=== PATIENT | female | born 1990 | race Two or more races ===

== ENCOUNTER 2020-05-08 13:10 | Outpatient (REF) | payer OTHER, SELFPAY | END 2020-05-08 13:11 | disposition home or self-care (01) | LOC: HO.LAB 13:10 | PROVIDERS: PCP Internal Medicine; Visit Provider Internal Medicine | DX: Z20.828 Contact with and (suspected) exposure to other viral communicable diseases (principal) | CPT/HCPCS: C9803; U0003 ==

== ENCOUNTER 2022-10-05 10:08 | Emergency (ER) | payer OTHER, SELFPAY ==
--- NOTE | ~2022-10-05 | XR_ITS ---
EXAMINATION: XR CHEST CLINICAL INFORMATION: Cough. COMPARISON: None available. TECHNIQUE: Frontal view of the chest was obtained. FINDINGS: Mild asymmetric markings are seen at the right lung base. The left lung is clear. The heart and mediastinal structures are unremarkable. XR/XR chest 1V IMPRESSION: Small right basilar infiltrate and/or atelectasis.
[2022-10-05 10:55] VITALS: BP 108/72; RESP 18; TEMP 36.6; O2SAT 98; BMI 29.3
--- NOTE | 2022-10-05 11:01 | ED.GENADULT ---
HPI - General Adult General Chief complaint: General Medical <ELIZABETH Gaines Last Filed: 10/05/22 11:02> Stated complaint: cough, throat pain, chest discomfort <ELIZABETH Gaines Last Filed: 10/05/22 11:02> Time Seen by Provider: 10/05/22 12:22 <ELIZABETH Gaines Last Filed: 10/05/22 11:02> Source: patient, RN notes reviewed and old records reviewed <ELIZABETH Iniguez Last Filed: 10/05/22 13:51> Mode of arrival: ambulatory <ELIZABETH Iniguez Last Filed: 10/05/22 13:51> History of Present Illness HPI narrative: 32-year-old female with no significant past medical history presenting to the ED complaining of dry cough, generalized fatigue/malaise, sore throat, SOB, chills x 1 week. Reports tested negative on outpatient COVID-19 testing. Denies chest pain, recent travel, sick contacts, pedal edema, calf pain, ear pain <ELIZABETH Iniguez Last Filed: 10/05/22 13:51> Onset (ago): day(s) <ELIZABETH Iniguez Last Filed: 10/05/22 13:51> Related Data Home medications: Previous Rx's Medication Instructions Recorded amoxicillin 500 mg capsule 1,000 mg PO TID 7 days #42 caps 10/05/22 azithromycin 250 mg tablet See Rx Instructions PO .COMPLEX #6 10/05/22 tabs benzonatate 100 mg capsule 100 mg PO TID PRN cough #14 caps 10/05/22 <ELIZABETH Gaines Last Filed: 10/05/22 11:02> Allergies/adverse reactions: Allergies Allergy/AdvReac Type Severity Reaction Status Date / Time No Known Allergies Allergy Unverified 02/20/20 17:05 <ELIZABETH Gaines Last Filed: 10/05/22 11:02> Review of Systems Review of Systems: Constitutional: No Fever, + Chills ENT/Mouth: No Ear Pain, + Nasal Congestion, No Sinus Pain, No Hoarseness, + sore throat, + Rhinorrhea, No Swallowing Difficulty Cardiovascular: No Chest Pain, + SOB Respiratory: + Cough, No Sputum, No Wheezing Gastrointestinal: No Nausea, No Vomiting, No Diarrhea, No Constipation, No Abdominal pain Genitourinary: No Dysuria, No Urinary Frequency, No Hematuria Musculoskeletal: No joint pain, No Myalgias, No Joint Swelling Skin: No Skin Lesions, No rash Neuro: No Weakness, No Numbness, No Paresthesias <ELIZABETH Iniguez - Last Filed: 10/05/22 13:51> Yes all other systems are reviewed and are negative <ELIZABETH Iniguez - Last Filed: 10/05/22 13:51> Constitutional: Constitutional: Reports as per HPI <ELIZABETH Iniguez Last Filed: 10/05/22 13:51> [facility] Past Medical History Attestation statement: The following information was validated with the patient. <ELIZABETH Iniguez Last Filed: 10/05/22 13:51> Source: old records reviewed <ELIZABETH Iniguez Last Filed: 10/05/22 13:51> Social History Social History: Social History Advance Directives: No Advance Directives Information Provided: No <ELIZABETH Gaines Last Filed: 10/05/22 11:02> Physical Exam ED Vital Signs: Vital Signs - 24 hr 10/05/22 10:55 10/05/22 13:00 10/05/22 12:55 Temperature 98 F Pulse Rate 77 76 Respiratory Rate 18 16 19 Blood Pressure 108/72 Pulse Oximetry 98 98 Oxygen Delivery Method Room Air Room Air BMI result Body Mass Index 29.3 <ELIZABETH Gaines Last Filed: 10/05/22 11:02> Vital Signs - 24 hr 10/05/22 10:55 10/05/22 13:00 10/05/22 12:55 Temperature 98 F Pulse Rate 77 76 Respiratory Rate 18 16 19 Blood Pressure 108/72 Pulse Oximetry 98 98 Oxygen Delivery Method Room Air Room Air BMI result Body Mass Index 29.3 <ELIZABETH Iniguez Last Filed: 10/05/22 13:51> Const General: cooperative, healthy appearing, no acute distress, alert and awake <ELIZABETH Iniguez - Last Filed: 10/05/22 13:51> Orientation/consciousness: patient oriented x3 <ELIZABETH Iniguez - Last Filed: 10/05/22 13:51> Limitations: no limitations <ELIZABETH Iniguez - Last Filed: 10/05/22 13:51> HENMT Head: Yes normal to inspection and Yes atraumatic <ELIZABTEH Iniguez - Last Filed: 10/05/22 13:51> Ears: hearing grossly normal bilaterally, external ears normal, TM's normal bilaterally and mastoids normal <ELIZABETH Iniguez - Last Filed: 10/05/22 13:51> General nose exam: Normal external nose present and Nasal discharge present <ELIZABETH Iniguez - Last Filed: 10/05/22 13:51> Face and sinus: Yes normal facial exam <ELIZABETH Iniguez Last Filed: 10/05/22 13:51> Throat: Yes posterior oropharynx normal, Yes uvula midline, No peritonsillar mass and No uvular edema <ELIZABETH Iniguez - Last Filed: 10/05/22 13:51> Eyes General: appearance normal, both eyes and all related structures <ELIZABETH Iniguez - Last Filed: 10/05/22 13:51> EOM: EOMs intact bilaterally <ELIZABETH Iniguez - Last Filed: 10/05/22 13:51> Neck Neck: Yes normal visual inspection and Yes no meningeal signs <ELIZABETH Iniguez - Last Filed: 10/05/22 13:51> Resp Effort & Inspection: normal respiratory effort and no respiratory distress <ELIZABETH Iniguez - Last Filed: 10/05/22 13:51> Auscultation: crackles on the right at the base <ELIZABETH Iniguez - Last Filed: 10/05/22 13:51> Cardio Rate: regular rate <ELIZABETH Iniguez - Last Filed: 10/05/22 13:51> Heart sounds: S1 normal heart sound present and S2 normal heart sound present <ELIZABETH Iniguez - Last Filed: 10/05/22 13:51> GI Inspection: Yes normal to inspection <ELIZABETH Iniguez Last Filed: 10/05/22 13:51> Skin Rashes: no rashes <ELIZABETH Iniguez Last Filed: 10/05/22 13:51> Wounds: no wounds <ELIZABETH Iniguez - Last Filed: 10/05/22 13:51> Neuro General: patient oriented x3, tone normal and no meningeal signs <ELIZABETH Iniguez Last Filed: 10/05/22 13:51> Gait exam (Neuro): Normal gait present <ELIZABETH Iniguez Last Filed: 10/05/22 13:51> Extrem General: Yes normal to inspection, Yes no pedal edema and Yes no calf tenderness <ELIZABETH Iniguez Last Filed: 10/05/22 13:51> Course Course Course Narrative: This is an RME: Additional HPI, ROS, PE not included below will be deferred to primary provider. URI sx X 1 week worsening. Denies sick contacts Viral test ordered Stable to go back to waiting room <ELIZABETH Gaines - Last Filed: 10/05/22 11:02> This is an RME: Additional HPI, ROS, PE not included below will be deferred to primary provider. URI sx X 1 week worsening. Denies sick contacts Viral test ordered Stable to go back to waiting room -1226--COVID & influenza negative 1251--XR chest 1V IMPRESSION: Small right basilar infiltrate and/or atelectasis. > will treat with p.o. Amoxicillin and Azithro -rapid strep negative Results discussed with patient including worrisome signs and symptoms and strict return precautions, and when to return to the emergency department. They verbalized understanding and feel safe for discharge at this time. <ELIZABETH Iniguez Last Filed: 10/05/22 13:51> Medications Administered Discontinued Medications Generic Name Dose Route Start Last Admin Trade Name Freq PRN Reason Stop Dose Admin Albuterol Sulfate 4 puff 10/05/22 12:36 10/05/22 12:54 Albuterol Sulfate 90 Mcg 8 Gm Inhaler INHALE 10/05/22 12:37 4 puff ONCE ONE Administration <ELIZABETH Gaines Last Filed: 10/05/22 11:02> Medications Administered Discontinued Medications Generic Name Dose Route Start Last Admin Trade Name Fadumo PRN Reason Stop Dose Admin Albuterol Sulfate 4 puff 10/05/22 12:36 10/05/22 12:54 Albuterol Sulfate 90 Mcg 8 Gm Inhaler INHALE 10/05/22 12:37 4 puff ONCE ONE Administration <ELIZABETH Iniguez - Last Filed: 10/05/22 13:51> Medical Decision Making Medical Decision Making MDM Narrative: 32-year-old female with no significant past medical history presenting to the ED complaining of dry cough, generalized fatigue/malaise, sore throat, SOB, chills x 1 week. On exam vital signs stable, NAD, nontoxic appearing, talking complete sentences, no respiratory distress, faint crackles noted to right lung base, good air movement, no pedal edema/calf tenderness. Concern for viral illness vs pneumonia vs bronchitis. Lower suspicion for ACS/PE. Rule out strep pharyngitis. Plan: COVID/flu, rapid strep, CXR, albuterol inhaler, re-evaluated Please refer to course for remaining clinical decision making, interpretation of labs/imaging results, and discussions with consultants and/or family members. <ELIZABETH Iniguez - Last Filed: 10/05/22 13:51> Differential Diagnosis Differential Diagnoses: The differential diagnosis associated with the presentation includes <ELIZABETH Iniguez - Last Filed: 10/05/22 13:51> As above <ELIZABETH Iniguez - Last Filed: 10/05/22 13:51> Lab Data MDM Lab Attestation statement: I reviewed the patient's lab results. <ELIZABETH Iniguez - Last Filed: 10/05/22 13:51> Labs: Lab Results 10/05/22 10/05/22 10/05/22 Range/Units 11:13 11:13 13:06 COVID-19 (BOOGIE) Negative (Negative) COVID-19 Clin Com See Note Influenza Type A (FINA) Negative (Negative) Influenza Type B (FINA) Negative (Negative) Influenza A & B Note See Note S. pyogenes GrpA FINA Negative (Negative) <ELIZABETH Gaines - Last Filed: 10/05/22 11:02> Lab Results 10/05/22 10/05/22 10/05/22 Range/Units 11:13 11:13 13:06 COVID-19 (BOOGIE) Negative (Negative) COVID-19 Clin Com See Note Influenza Type A (FINA) Negative (Negative) Influenza Type B (FINA) Negative (Negative) Influenza A & B Note See Note S. pyogenes GrpA FINA Negative (Negative) <ELIZABETH Iniguez - Last Filed: 10/05/22 13:51> Radiology Impression Discussion of test interpretation with radiology: I have reviewed the radiologist's reading. <ELIZABETH Iniguez - Last Filed: 10/05/22 13:51> External Record Review External record reviewed: Inpatient record, Office record, Outpatient record, Prior outpatient labs, Prior outpatient radiology, Primary care record and Outside ED record <ELIZABETH Iniguez - Last Filed: 10/05/22 13:51> Tests considered The following testing was considered but not selected: As above <ELIZABETH Iniguez - Last Filed: 10/05/22 13:51> Discharge Plan Discharge Clinical Impression: Pneumonia <ELIZABETH Gaines - Last Filed: 10/05/22 11:02> Patient Disposition: Home, Self-Care <ELIZABETH Gaines - Last Filed: 10/05/22 11:02> Instructions: Community Acquired Pneumonia (DC) <ELIZABETH Gaines - Last Filed: 10/05/22 11:02> Additional Instructions: Your x-ray shows a small developing pneumonia. Amoxicillin and Zithromax and or antibiotics please take as prescribed David Dawson for cough take as needed Use albuterol inhaler for shortness of breath/wheezing rest Stay hydrated Follow-up with her doctor If symptoms persist or worsen return to the ED <ELIZABETH Gaines - Last Filed: 10/05/22 11:02> Prescriptions: New amoxicillin 500 mg capsule 1,000 mg PO TID 7 Days Qty: 42 0RF azithromycin 250 mg tablet See Rx Instructions .ROUTE .COMPLEX Qty: 6 0RF Rx Instructions: take 500 mg today (day 1), then 250 mg for 4 days (days 2-5) benzonatate 100 mg capsule 100 mg PO TID PRN (Reason: cough) Qty: 14 0RF <ELIZABETH Gaines - Last Filed: 10/05/22 11:02> Referrals: Brenda Banks MD [Primary Care Provider] - 3 days <ELIZABETH Gaines - Last Filed: 10/05/22 11:02> Stand Alone Forms: Work/School Release <ELIZABETH Gaines - Last Filed: 10/05/22 11:02>
[2022-10-05 11:49] LABS: IDNOW Serial# BCCEAD1C; Influenza A Negative (Negative); Influenza B2 Negative (Negative)
[2022-10-05 11:50] LABS: COVID-19 Test Negative (Negative); IDNOW Serial# 08D9AD1C
[2022-10-05] MEDS: Albuterol Sulfate 90 MCG 8 GM INHALER 4 PUFF INHALE (12:54)
[2022-10-05 12:55] VITALS: PULSE 76; RESP 19; O2SAT 98
[2022-10-05 13:00] VITALS: PULSE 77; RESP 16; O2SAT 97
[2022-10-05 13:23] LABS: IDNOW Serial# 6674DD1D; Strep A Nucleic Acid Negative (Negative)
== END 2022-10-05 14:38 | disposition home or self-care (01) ==
PROVIDERS: Physician Assistant; Emergency Provider Student in an Organized Health Care Education/Training Program; PCP Internal Medicine
DX: J18.9 Pneumonia, unspecified organism (principal); Z20.822 Contact with and (suspected) exposure to COVID-19; J02.9 Acute pharyngitis, unspecified
CPT/HCPCS: 71045; 87502; 87635; 87651; 94640; 94664; 99284

== ENCOUNTER 2023-08-16 09:49 | Emergency (ER) | payer OTHER, SELFPAY ==
[2023-08-16 10:01] VITALS: BP 117/81; PULSE 82; RESP 18; TEMP 36.7; O2SAT 100; BMI 29.9
--- NOTE | 2023-08-16 10:40 | ED_ITS ---
HPI - General Adult General Chief complaint: Anxiety Stated complaint: Anxiety Attack Time Seen by Provider: 08/16/23 10:39 Source: patient Mode of arrival: ambulatory Limitations: no limitations History of Present Illness HPI narrative: Patient is a 33 year old, assigned female at , with a history of anxiety induced by new social situations presents to the ED after having a panic attack at work. Patient reports she was at work, when she was floated to a new unit, which caused her to have a panic attack. Patient reports she was sent home from work after being unable to control her anxiety. At the time she was seen the patient was not experiencing any symptoms related to her anxiety or her recent panic attack. Patient advised that she was waiting to establish care with a primary care provider but her appointment is not scheduled until October 02, 2023. Denies fevers/chills, lightheadedness, dizziness, SOB, chest pain, and SI/HI at this time. MD complaint: Panic attack Onset (ago): hour(s) (2) Radiation: non-radiation Severity: mild Severity scale (1-10): 2 Pain Consistency: now resolved Relieving factors: other (avoidance of new social situations) Exacerbating factors: other (New social situations) Associated symptoms: denies other symptoms Treatments prior to arrival: none Related Data Previous Rx's Medication Instructions Recorded amoxicillin 500 mg capsule 1,000 mg (2 x 500 mg) PO TID 7 10/05/22 days #42 caps azithromycin 250 mg tablet See Rx Instructions PO .COMPLEX #6 10/05/22 tabs benzonatate 100 mg capsule 100 mg PO TID PRN cough #14 caps 10/05/22 Allergies Allergy/AdvReac Type Severity Reaction Status Date / Time No Known Allergies Allergy Verified 08/16/23 10:05 Review of Systems Constitutional: Constitutional: Reports no additional constitutional complaints, Denies chills, Denies fever(s) and Denies night sweats Eyes: Eyes: Reports no additional eye complaints, Denies blurry vision, Denies change in vision, Denies diplopia, Denies eye discharge, Denies loss of vision and Denies eye pain ENT: Denies dizziness Cardiovascular: Cardiovascular: Reports no additional cardiovascular complaints, Denies chest pain, Denies lightheadedness, Denies Loss of Consciousness and Denies dyspnea Respiratory: Respiratory: Reports no additional respiratory complaints and Denies dyspnea Gastrointestinal: Gastrointestinal: Reports no additional gastrointestinal complaints, Denies abdominal pain, Denies melena, Denies hematochezia, Denies change in bowel habits and Denies change in stool character Genitourinary: Genitourinary: Denies hematuria, Denies urinary frequency, Denies dysuria, Denies urinary incontinence, Denies urinary hesitancy and Denies urinary urgency Musculoskeletal: Musculoskeletal: Reports no additional musculoskeletal complaints, Denies numbness and Denies tingling Neurologic: Denies dizziness, Denies loss of vision, Denies numbness and Denies tingling Psychiatric: Psychiatric: Reports no additional psychiatric complaints Endocrine: Endocrine: Reports no additional endocrine complaints Hematologic/Lymphatic: Hematologic/Lymphatic: Reports no additional hematologic/lymphatic complaints Allergic/Immunologic: Allergic/Immunologic: Reports no additional allergic/immunologic complaints [facility] Past Medical History Attestation statement: The following information was validated with the patient. Source: old records reviewed and nursing notes reviewed Social History Social History Advance Directives: No Physical Exam ED Vital Signs: Vital Signs - 24 hr 08/16/23 10:01 Temperature 98.1 F Pulse Rate 82 Respiratory Rate 18 Blood Pressure 117/81 Pulse Oximetry 100 Oxygen Delivery Method Room Air BMI result Body Mass Index 29.9 Const General: cooperative, no acute distress, alert and awake Nutritional Appearance: average body habitus Orientation/consciousness: patient oriented x3 Limitations: no limitations HENMT Head: Yes normal to inspection Ears: hearing grossly normal bilaterally General nose exam: Normal external nose present Face and sinus: Yes normal facial exam Mouth: Normal oral and palatal mucosa present, no drooling and no muffled voice Eyes General: appearance normal, both eyes and all related structures Periorbital: periorbital findings normal Eyelids: Yes eyelids normal Conjunctivae: conjunctivae normal Pupils: Equal, round and reactive pupils present EOM: EOMs intact bilaterally Neck Neck: Yes normal visual inspection Chest Chest palpation & inspection: normal inspection of the chest Resp Effort & Inspection: normal respiratory effort and able to speak in complete sentences Auscultation: clear to auscultation bilaterally Cardio Jugular venous distension: no JVD Palpation: normal PMI Rate: regular rate Rhythm: regular rhythm GI Inspection: Yes normal to inspection Neuro General: patient oriented x3 Cranial nerves: Yes Equal, round and reactive pupils present Cognition (Neuro): normal cognition Motor exam (neuro): 5/5 motor strength present throughout Sensory Exam: Normal double simultaneous stimulation for sensation Coordination: [id number] test normal Extrem General: Yes normal to inspection, Yes full ROM and Yes capillary refill normal Psych Appearance: grossly normal Mental Status: mental status grossly normal Speech and movement: Normal speech and movement present Affect: normal affect Attitude: cooperative Thought process: Normal thought process present Thought content: Normal thought content present Insight: Good insight present (Psych) Judgement: Good judgement present (Psych) Medical Decision Making Medical Decision Making MDM Narrative: Patient is a 33 year old assigned female at with a history of anxiety presenting to the emergency department today after a panic attack. Patient's physical exam was unremarkable. I explained my physical exam findings to the patient. I answered all questions asked by the patient. I stressed the importance of the patient taking her medication as prescribed. I stressed the importance of the patient following up with her primary care provider and a psychiatrist. I stressed the importance of the patient returning to the emergency department immediately if her symptoms were to worsen or if she were to develop any dizziness, shortness of breath, difficulty breathing, chest pain, blurry vision, loss of vision, nausea, vomiting, abdominal pain, fever, chills, back pain, or any other complaints. Patient verbalized agreement and understanding with this treatment plan and discharge. Differential Diagnosis Differential Diagnoses: The differential diagnosis associated with the presentation includes Anxiety Panic attack Admission/Observation Consideration of admission/observation: Escalation of care including admission/observation considered Patient would have been admitted to the hospital had her clinical presentation warranted hospital admission. Discharge Plan Discharge Clinical Impression: Acute anxiety Patient Disposition: Home, Self-Care Instructions: Anxiety (ED) Additional Instructions: Follow up with your primary care provider and a psychiatrist. Return to the emergency department immediately if your symptoms worsen or if you develop any dizziness, shortness of breath, difficulty breathing, chest pain, blurry vision, loss of vision, nausea, vomiting, abdominal pain, fever, chills, back pain, or any other complaints. [facility] [place]: [address] [place] [address] Walk in hours from 10am - 12pm Open from 10am - 12pm [facility] [place] Crisis Services: [address] [place] [id number] Walk in hours from 10am - 12pm Open 26/12 [facility]: [address] [place] [address] [place] [id number] Hours: M-F 8am to 8pm Monday and Monday 9am to 5pm Prescriptions: No Action amoxicillin 500 mg capsule 1,000 mg PO TID 7 Days Qty: 42 0RF azithromycin 250 mg tablet See Rx Instructions .ROUTE .COMPLEX Qty: 6 0RF Rx Instructions: take 500 mg today (day 1), then 250 mg for 4 days (days 2-5) benzonatate 100 mg capsule 100 mg PO TID PRN (Reason: cough) Qty: 14 0RF Referrals: [facility] Family [facility] [Provider Group] (Call to establish and follow up with a primary care provider. If you already have a primary care provider, please follow up with them.) [facility] Primary Care, [place] [Provider Group] (Call to establish and follow up with a primary care provider. If you already have a primary care provider, please follow up with them.) [facility] Primary Care,[place] [Provider Group] (Call to establish and follow up with a primary care provider. If you already have a primary care provider, please follow up with them.) Stand Alone Forms: Work/School Release Interventions: ED Discharge Assessment Last Done: 08/16/23 11:20 Discharge Date/Time: 08/16/23 11:20 Print Language: Icelandic
== END 2023-08-16 11:20 | disposition home or self-care (01) ==
PROVIDERS: Emergency Provider Emergency Medicine Emergency Medical Services
DX: F41.0 Panic disorder [episodic paroxysmal anxiety] (principal); F41.1 Generalized anxiety disorder
CPT/HCPCS: 99282

== ENCOUNTER 2024-05-21 08:54 | Outpatient (AMB) | payer OTHER, SELFPAY ==
--- NOTE | 2024-05-21 08:57 | MHC.PC.OV ---
Vital Signs 05/21/24 08:59 Height 5 ft 1 in Weight 151 lb BMI 28.5 BP 120/72 Blood Pressure Location Lt brachial Position Sitting Pulse 79 Pulse Source Pulse Oximeter Pulse Oximetry (%) 97 Oxygen Delivery Method Room Air Intake Visit Reasons: establish care Intake Note: Patient is a new patient here to establish care for Anxiety, Depression, ADHD, Pains under both arms, Headaches, Sever Seasonal allergies. Transferring care from Dr Leonard . Medical records have not been requested and have not received. Production Pattern Maker Required: No Steel Pourer Helper: Not Required per policy Accompanied by: Self / Same As Patient Allergies No Known Allergies Allergy (Verified 05/21/24 09:10) Medication List - Last Reconciled 05/21/24 by Bianca Mcnamara PA-C Tobacco use date assessed: 05/21/24 Dental Screening Dental Screen Date: 05/21/24 Did you have a dental visit in the last 12 months?: No Did you have a dental problem in the last 6 months where you did not have access to dental care?: No Was dental information given to patient?: No HPI establish care HPI Details 33-year-old female with past medical history of anxiety coming to the office for the 1st time. Patient states she has a history of anxiety and was previously being treated with escitalopram but did find she was nauseous with this medication she was also on hydroxyzine as needed and did not find this medication helpful. She states her anxiety is primarily centered around social anxiety and we will occasionally have panic attacks. She does not have a counselor this time. She follows with Nancy Ramos for regular Pap smears and was advised to undergo colposcopy but has not done this yet. She also mentions having a rash on her left shoulder which has been present for several months. [facility] Surgical History No pertinent past surgical history Social History Housing: Apartment Alcohol intake: current Alcohol intake frequency: holidays/special occasions only Patient Tobacco Use Status: Never used Tobacco e-Cigarette/Vaping Use: Never Used Second Hand Smoke Exposure: No service: No Current occupational status: employed Current occupation: [employer] ([employer]) Cognitive needs: No Hearing needs: No Vision needs: No Questionnaire PHQ-9 Over the last 2 weeks, how often have you been bothered by any of the following problems? 1. Little interest or pleasure in doing things: nearly every day 2. Feeling down, depressed, or hopeless: more than half the days 3. Trouble falling or staying asleep, or sleeping too much: nearly every day 4. Feeling tired or having little energy: nearly every day 5. Poor appetite or overeating: more than half the days 6. Feeling bad about yourself - or that you are a failure or have let yourself or your family down: nearly every day 7. Trouble concentrating on things, such as reading the newspaper or watching television: nearly every day 8. Moving or speaking so slowly that other people could have noticed. Or the opposite - being so fidgety or restless that you have been moving around a lot more than usual: nearly every day 9. Thoughts that you would be better off or of hurting yourself in some way: not at all Total score: 22 Depression Screening Interpretation: Positive Depression Screening Done: Yes Source: Developed by Drs. Francisco Javier Mas, Idania Erickson, Cortez Candelario and colleagues, with an educational viridiana from [employer]. Thrive Questionnaire Date Thrive assessed: 05/21/24 I am a: Patient What is your living situation today?: I have a steady place to live Within the past 12 months, did the food you bought not last and you didn't have the money to get more?: Never true Within the past 12 months, did you worry whether your food would run out before you got money to buy more?: Never true Do you have trouble paying for medicines?: No Do you have trouble getting transportation to medical appointments?: No Do you have trouble paying your heating and electricity bill?: No Do you have trouble taking care of your child, family member or friend?: No Do you have trouble with day-to-day activities such as bathing, preparing meals, shopping, managing finances, etc.?: Yes Are you currently unemployed and looking for a job?: No Are you interested in more education?: No Please select the resources that you would like help with: None Currently or been in a relationship where the following occur: No concerns reported THRIVE Score: 0 AUDIT C Alcohol Use Questionnaire (AUDIT-C) 1. How often do you have a drink containing alcohol?: 2-4 times a month 2. How many drinks containing alcohol do you have on a typical day when you are drinking?: 3 or 4 3. How often do you have six or more drinks on one occasion?: Never Total Score: 3 MONA-7 AMB Questionnaire MONA-7 Date MONA - 7 assessed: 05/21/24 Feeling nervous, anxious, or on edge: 3 = Nearly every day Not being able to stop or control worryin = Nearly every day Worrying too much about different things: 3 = Nearly every day Trouble relaxin = Nearly every day Being so restless that it is hard to sit still: 3 = Nearly every day Becoming easily annoyed or irritable: 3 = Nearly every day Feeling afraid as if something awful might happen: 3 = Nearly every day Total MONA-7 score (0-4 normal; 5-9 mild; 10-14 moderate; 15-21 severe): 21 Source: Developed by Drs. Francisco Javier Mas, Idania Erickson, Cortez Candelario and colleagues, with an educational viridiana from [employer]. Review of Systems Const Denies body aches, Denies fatigue, Denies fever(s), Denies frequent falls, Denies headache(s) and Denies weakness Eyes Reports no additional complaints and Denies change in vision ENT Denies dysphagia, Denies dizziness, Denies facial pain, Denies headache(s), Denies nasal congestion and Denies odynophagia Card Denies chest pain, Denies syncope, Denies irregular heart rhythm, Denies leg edema, Denies lightheadedness and Denies dyspnea Resp Denies cough and Denies dyspnea GI Denies abdominal pain, Denies constipation, Denies dysphagia, Denies dyspepsia, Denies diarrhea, Denies nausea, Denies odynophagia and Denies vomiting Denies urinary frequency, Denies dysuria, Denies urinary hesitancy and Denies urinary urgency Musc Denies back pain and Denies myalgias Skin/Breast Reports system reviewed and no additional complaints, except as documented Neuro Denies dizziness, Denies syncope, Denies frequent falls, Denies headache(s) and Denies weakness Psych Reports abnormal sleep pattern and Reports anxiety Endo Denies fatigue Physical exam (Primary Care) Vital Signs: Last Vital Signs Pulse 79 12/17/24 08:59 BP 120/72 05/21/24 08:59 Pulse Ox 97 05/21/24 08:59 Oxygen Delivery Method Room Air 05/21/24 08:59 BMI result Body Mass Index 28.5 Tobacco/Smoking Status: Tobacco use Status Tobacco use date assessed 05/21/24 05/21/24 09:09 Patient Tobacco Use Status Never used Tobacco 05/21/24 09:09 e-Cigarette/Vaping Use Never Used 05/21/24 09:09 PHQ-9: PHQ-9 Score PHQ-9: Total score 22 05/21/24 09:12 Depression Screening Interpretation: Positive Thrive Assessment: Date of Thrive Assessment Date Thrive assessed 05/21/24 05/21/24 09:09 Currently or been in a relationship where the following occur: No concerns reported Const General: cooperative, healthy appearing, comfortable and no acute distress Orientation/consciousness: patient oriented x3 HENMT Head: Yes normocephalic Ears: hearing grossly normal bilaterally General nose exam: Normal external nose present Eyes General: appearance normal, both eyes and all related structures Conjunctivae: conjunctivae normal Neck Neck: Yes full ROM and Yes no lymphadenopathy Resp Effort & Inspection: normal respiratory effort Auscultation: clear to auscultation bilaterally, no crackles, no rales, no rhonchi and no wheezes Cardio Rate: regular rate Rhythm: regular rhythm Skin General skin exam: no rashes or lesions noted Neuro General: patient oriented x3 Gait exam (Neuro): Normal gait present Extrem General: Yes normal to inspection, Yes full ROM and No edema Psych Affect: normal affect Attitude: cooperative Insight: Good insight present (Psych) Judgement: Good judgement present (Psych) Coding Level of Care Code New Pt Level 4 (80386) Diagnoses Depression F32.A Hypopigmentation L81.9 Anxiety F41.9 Assessment & Plan Assessment & Plan (1) Depression: Code(s): F32.A - Depression, unspecified Category: Medical Plan: Patient complaining of depression anxiety discussed at length today possible treatment options including SSRIs. Patient does not interested in medication at this time and would like to see Psychiatry. Referral placed to outpatient psych clinic and counseling referral placed today. (2) Hypopigmentation: Code(s): L81.9 - Disorder of pigmentation, unspecified Category: Medical Plan: Patient complaining of rash on left shoulder. On exam had patches of hypopigmentation we will give topical antifungal cream advised to try for 2 weeks and follow up if symptoms worsen or persist. (3) Anxiety: Code(s): F41.9 - Anxiety disorder, unspecified Category: Medical Plan: Patient complaining of depression anxiety discussed at length today possible treatment options including SSRIs and BuSpar. Patient does not interested in medication at this time and would like to see Psychiatry. Referral placed to outpatient psych clinic and counseling referral placed today. Plan This note was constructed using voice recognition software. While every effort has been made to ensure accuracy and director of public works, still areas may have been included sometimes these areas may affect the content or meeting of the given symptoms. Total time spent caring for the patient today was 30 minutes. This includes time spent before the visit reviewing the chart, time spent during the visit, and time spent after the visit and documentation. Orders: Orders Complete Blood Count Auto Diff Today Z00.00 - Encounter for general adult medical examination without abnormal findings Lipid Panel Today E78.00 - Pure hypercholesterolemia, unspecified TSH reflex Free T4 Today F41.9 - Anxiety disorder, unspecified, Z00.00 - Encounter for general adult medical examination without abnormal findings Free T4 (Free Thyroxine) Today F41.9 - Anxiety disorder, unspecified, Z00.00 - Encounter for general adult medical examination without abnormal findings Vitamin B12 and Folate Today Z00.00 - Encounter for general adult medical examination without abnormal findings Vitamin D 25-OH Total Today Z00.00 - Encounter for general adult medical examination without abnormal findings Comprehensive Met. Panel Today Z00.00 - Encounter for general adult medical examination without abnormal findings Referrals Counseling Referral F41.9 - Anxiety disorder, unspecified Psychiatry Outpatient Consultation Service F41.9 - Anxiety disorder, unspecified Medications: New ketoconazole 2% 1 appl topical DAILY 30 grams 0RF
[2024-05-21 08:59] VITALS: BP 120/72; PULSE 79; O2SAT 97; BMI 28.5
== END 2024-05-21 09:36 | disposition home or self-care (01) ==
DX: F32.A Depression, unspecified (principal); L81.9 Disorder of pigmentation, unspecified; F41.9 Anxiety disorder, unspecified

== ENCOUNTER 2024-08-19 08:13 | Outpatient (AMB) | payer OTHER, SELFPAY ==
--- NOTE | 2024-08-19 08:19 | A.OFFPC_ITS ---
Vital Signs 08/19/24 08:21 Height 5 ft 1 in Weight 144 lb 8 oz BMI 27.3 BP 120/60 Blood Pressure Location Lt brachial Position Sitting Pulse 77 Pulse Source Pulse Oximeter Temp 97.7 F Temp Source Temporal Artery Scan Pulse Oximetry (%) 98 Oxygen Delivery Method Room Air Intake Visit Reasons: 3 month f/u Intake Note: Patient is here to follow up on Depression and Anxiety. Requesting referral for psy status. Fusing Machine Operator Required: No Director Of Brand Marketing: Not Required per policy Accompanied by: Self / Same As Patient Allergies No Known Allergies Allergy (Verified 08/19/24 08:36) Medication List - Last Reconciled 08/19/24 by Bianca Mcnamara PA-C ketoconazole 2% 1 appl topical DAILY Tobacco use date assessed: 08/19/24 Dental Screening Dental Screen Date: 08/19/24 Did you have a dental visit in the last 12 months?: No Did you have a dental problem in the last 6 months where you did not have access to dental care?: No Was dental information given to patient?: No HPI 3 month f/u HPI Details 34-year-old female with past medical his tory of depression and anxiety last seen 05/2024 coming in for follow up.? Presenting with persistent anxiety disorder. Since the last visit, the patient has lost 6 pounds, attributed to increased physical activity through walking. Musculoskeletal pain localized in the neck, occurring approximately weekly, arises without positional triggers, lasts about an hour, and is not linked to prior trauma or significant office work. [facility] Surgical History No pertinent past surgical history Social History Housing: Apartment Alcohol intake: current Alcohol intake frequency: holidays/special occasions only Patient Tobacco Use Status: Never used Tobacco Tobacco use type: Cigarette e-Cigarette/Vaping Use: Never Used Second Hand Smoke Exposure: No service: No Current occupational status: employed Current occupation: [employer] ([employer]) Cognitive needs: No Hearing needs: No Vision needs: No Questionnaire PHQ-9 Over the last 2 weeks, how often have you been bothered by any of the following problems? 1. Little interest or pleasure in doing things: nearly every day 2. Feeling down, depressed, or hopeless: several days 3. Trouble falling or staying asleep, or sleeping too much: more than half the days 4. Feeling tired or having little energy: more than half the days 5. Poor appetite or overeating: more than half the days 6. Feeling bad about yourself - or that you are a failure or have let yourself or your family down: nearly every day 7. Trouble concentrating on things, such as reading the newspaper or watching television: nearly every day 8. Moving or speaking so slowly that other people could have noticed. Or the opposite - being so fidgety or restless that you have been moving around a lot more than usual: nearly every day 9. Thoughts that you would be better off or of hurting yourself in some way: not at all Total score: 19 Depression Screening Interpretation: Positive Depression Screening Done: Yes Source: Developed by Drs. Francisco Javier Mas, Idania Erickson, Cortez Candelario and colleagues, with an educational viridiana from [employer]. Thrive Questionnaire Date Thrive assessed: 08/19/24 I am a: Patient What is your living situation today?: I have a steady place to live Within the past 12 months, did the food you bought not last and you didn't have the money to get more?: Never true Within the past 12 months, did you worry whether your food would run out before you got money to buy more?: Never true Do you have trouble paying for medicines?: No Do you have trouble getting transportation to medical appointments?: No Do you have trouble paying your heating and electricity bill?: No Do you have trouble taking care of your child, family member or friend?: No Do you have trouble with day-to-day activities such as bathing, preparing meals, shopping, managing finances, etc.?: Yes Are you currently unemployed and looking for a job?: No Are you interested in more education?: No Please select the resources that you would like help with: None Currently or been in a relationship where the following occur: No concerns reported THRIVE Score: 0 AUDIT C Alcohol Use Questionnaire (AUDIT-C) 2. How many drinks containing alcohol do you have on a typical day when you are drinking?: 1 or 2 3. How often do you have six or more drinks on one occasion?: Never Total Score: 0 MONA-7 AMB Questionnaire MONA-7 Date MONA - 7 assessed: 08/19/24 Feeling nervous, anxious, or on edge: 3 = Nearly every day Not being able to stop or control worryin = Nearly every day Worrying too much about different things: 3 = Nearly every day Trouble relaxin = Nearly every day Being so restless that it is hard to sit still: 3 = Nearly every day Becoming easily annoyed or irritable: 3 = Nearly every day Feeling afraid as if something awful might happen: 3 = Nearly every day Total MONA-7 score (0-4 normal; 5-9 mild; 10-14 moderate; 15-21 severe): 21 Source: Developed by Drs. Francisco Javier Mas, Idania Erickson, Cortez Candelario and colleagues, with an educational viridiana from [employer]. Review of Systems Const Denies body aches, Denies chills, Denies fever(s), Denies headache(s) and Denies poor appetite Eyes Reports no additional complaints ENT Denies dizziness and Denies headache(s) Card Denies chest pain, Denies lightheadedness and Denies dyspnea Resp Denies cough and Denies dyspnea GI Reports no additional complaints, Denies nausea and Denies vomiting Reports no additional complaints Musc Reports no additional complaints and Denies abnormal gait Skin/Breast Reports system reviewed and no additional complaints, except as documented Neuro Denies abnormal gait, Denies dizziness and Denies headache(s) Psych Reports anxiety and Reports depression Physical exam (Primary Care) Vital Signs: Last Vital Signs Temp 97.7 F 08/19/24 08:21 Oxygen Delivery Method Room Air 08/19/24 08:21 BMI result Body Mass Index 27.3 Tobacco/Smoking Status: Tobacco use Status Tobacco use date assessed 08/19/24 08/19/24 08:23 Patient Tobacco Use Status Never used Tobacco 08/19/24 08:21 Tobacco use type Cigarette 08/19/24 08:23 e-Cigarette/Vaping Use Never Used 08/19/24 08:21 PHQ-9: PHQ-9 Score PHQ-9: Total score 22 08/19/24 08:23 Depression Screening Interpretation: Positive Thrive Assessment: Date of Thrive Assessment Date Thrive assessed 08/19/24 08/19/24 08:21 Currently or been in a relationship where the following occur: No concerns reported Const General: cooperative, healthy appearing, comfortable and no acute distress Orientation/consciousness: patient oriented x3 HENMT Head: Yes normocephalic Ears: hearing grossly normal bilaterally General nose exam: Normal external nose present Eyes General: appearance normal, both eyes and all related structures Conjunctivae: conjunctivae normal Neck Neck: Yes full ROM and Yes no lymphadenopathy Resp Effort & Inspection: normal respiratory effort Auscultation: clear to auscultation bilaterally, no crackles, no rales, no rhonchi and no wheezes Cardio Rate: regular rate Rhythm: regular rhythm Skin General skin exam: no rashes or lesions noted Neuro General: patient oriented x3 Gait exam (Neuro): Normal gait present Extrem General: Yes normal to inspection, Yes full ROM and No edema Psych Affect: normal affect Attitude: cooperative Insight: Good insight present (Psych) Judgement: Good judgement present (Psych) Coding Level of Care Code Est Pt Level 3 (88713) Diagnoses Depression F32.A Hypopigmentation L81.9 Anxiety F41.9 Overweight (BMI 25.0-29.9) E66.3 Neck pain M54.2 Assessment & Plan Assessment & Plan (1) Depression: Code(s): F32.A - Depression, unspecified Category: Medical Plan: Patient continuing to have depression and anxiety symptoms. The patient will start venlafaxine for anxiety disorder, to be taken at bedtime. Awaiting schedule from outpatient psych clinic. (2) Hypopigmentation: Code(s): L81.9 - Disorder of pigmentation, unspecified Category: Medical Plan: Prescription cream was not picked up after last visit refill sent to pharmacy (3) Anxiety: Code(s): F41.9 - Anxiety disorder, unspecified Category: Medical Plan: Patient continuing to have depression and anxiety symptoms. The patient will start venlafaxine for anxiety disorder, to be taken at bedtime. Awaiting schedule from outpatient psych clinic. (4) Overweight (BMI 25.0-29.9): Code(s): E66.3 - Overweight Category: Medical Plan: Healthy diet and regular exercise is encouraged. Noted 6 lb intentional weight loss from last visit (5) Neck pain: Code(s): M54.2 - Cervicalgia Category: Medical Plan: Manual therapy or environmental adjustments have been recommended for the reported neck pain, deemed muscular. Continue to monitor symptoms if pain worsens or increases in frequency or intensity to reach out to the office. Plan This note was constructed using voice recognition software. While every effort has been made to ensure accuracy and licensed mental health counselor, still areas may have been included sometimes these areas may affect the content or meeting of the given symptoms. Total time spent caring for the patient today was 20 minutes. This includes time spent before the visit reviewing the chart, time spent during the visit, and time spent after the visit and documentation. Patient was informed and verbally consented to the use of an ambient scribe for clinic note documentation during this visit. Medications: New venlafaxine ER 37.5 mg PO BEDTIME 60 caps 1RF Refilled ketoconazole 2% 1 appl topical DAILY 30 grams 0RF
[2024-08-19 08:21] VITALS: BP 120/60; PULSE 77; TEMP 36.5; O2SAT 98; BMI 27.3
--- OUTSIDE RECORDS SUMMARY | 2024-08-19 08:22 | XMS_ITS | Patient Health Record ---
Author Organization [employer] [facility] Address [address] [place] [address] Care Team Providers Care News Videotape Editor Name Role Phone SHAYY BAILEY Unavailable [phone] Reason For Referral No Information Encounters Encounter Location Date Provider Diagnosis [facility] [employer] [facility] [address] [place] [address] 11/02/2023 SHAYY BAILEY Encounter for gynecological examination (general) (routine) [...] transmission (ICD-10 - Z11.3) Plan Of Treatment No Information Insurance Providers Payer Name Payer Address Payer Phone Subscriber Number Group Number Insured Name Patient Relationship to Insured Coverage Start Date Coverage End Date [facility] [address] [place] [address] JIL PERLA Self - patient is the insured
--- OUTSIDE RECORDS SUMMARY | 2024-08-19 08:22 | XMS_ITS | Encounter Summary ---
Author Organization [facility] Address [address] [place] [address] Phone Care Team Providers Care Seaman Officer Name Role Phone Eunice Martinez MD Primary Care Provider Unavailabl e Encounter Details Date Type Department Care Team (Late st Contact Info) Description 07/15/2011 Documentation EM Family Medicine [address] [place] [address] Family Medicine, Physician [address] [place] [address] Social History Tobacco Use Types Packs/Day Years Used Date Smoking Tobacco: Never Assessed Comments Unknown Sex and Gender Information Value Date Recorded Sex Assigned at Not on file Legal Sex Female 4:40 PM EDT Gender Identity Not on file Sexual Orientation Not on file documented as of this encounter Plan of Treatment Not on file documented as of this encounter Visit Diagnoses Not on filedocumented in this encounter Care Teams Seaman Officer Relationship Specialty Start Date End Date Eunice Martinez MD PCP - General 01/13/17 documented as of this encounter
--- OUTSIDE RECORDS SUMMARY | 2024-08-19 08:22 | XMS_ITS ---
Author Organization [facility] [employer] Address [address] [place] [address] Care Team Providers Care Nuclear Power Plant Engineer Name Role Phone BAILEY, SHAYY Unavailable [phone] REASON FOR VISIT Annual FILLER IN Physical Encounters Encounter Location Date Provider Diagnosis [address] [place] [address] 11/02/2023 SHAYY BAILEY Encounter for gynecological examination [...] Follow Up: 1 Year, Reason: Y early Aluminum Boat Inspector Exam Progress Notes * JIL PERLADOB:1990 (34 yo F)Acc No.[id number]:11/02/2023 Progress Note Patient:?JIL PERLA Provider:?SHAYY BAILEY MD :1990???Age:33 Y???Sex:Female D ate:11/02/2023 Address:[address] [place] [address] [id number], [id number] Subjective: * Chief Complaints: * ???1. Annual FILLER IN Physical. * HPI: ???Constitutional:? 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 She is new to this practice, having received previous ball points inspector care . She has been in state [...] She exercises x days/week by . * ROS:?Annual Aluminum Boat Inspector Exam ROS:?Bowel habit changes?denies.?Bladder symptoms?denies.?Vaginal discharge, unusual?denies.?Vaginal itch or odor?denies.?weight or appetite changes?denies.?Chest pains, SOB?denies.?depression?denies.?Breast:?Denies?Breast lump.?Denies?Nipple discharge.?Hematology:?Denies?Swollen glands.?Skin:?Patient complaining of?changing moles.?Psychiatric:?Denies?Anxiety.? * Medical History:? Objective: * Vitals:? * Examination: ???General Examination: ?GENERAL APPEARANCE:?in no acute distress,well developed, well nourished,crepe sole wire brusher present in room.?HEAD:?normocephalic, atraumatic.?NECK/THYROID:?neck supple, full range of motion,thyroid normal.?LYMPH NODES:?no axillary or supraclavicular adenopathy.?SKIN:?normal,good turgor,no rashes,no suspicious lesions.?BREASTS:?normal,no dimpling,no discharge,no drainage,no masses palpable bilaterally,nontender.?ABDOMEN:?soft, non-tender, non distended without masses or hepatosplenomegay.?BACK:?no costovertebral angle tenderness.?FEMALE GENITOURINARY:?Vulva without lesions or masses, vagina pink without abnormal discharge, lesions or masses, cervix appears normal and is not tender to palpation, uterus is normal size, mobile, nontender and anteverted, ovaries are not palpable.?NEUROLOGIC:?alert and oriented,gait normal.?PSYCH:?alert, oriented,cognitive function intact,cooperative with exam,good eye contact,mood/affect full range,speech clear.? Assessment: * Assessment: 1.?Encounter for gynecologic al examination (general) (routine) without abnormal findings - Z01.419 (Primary)???2.?Encounter for screening for infections with a predominantly sexual mode of transmission - Z11.3??? Plan: * Treatment: * Follow Up:?1 Year (Reason: Y early Aluminum Boat Inspector Exam) * Images: Billing Information: * Visit Code:? 73454 Preventive Care New Pt. Age 18-39. * Procedure Codes:? 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 She is new to this practice, having received previous ball points inspector care . She has been in state [...] General Examination GENERAL APPEARANCE: in no ac dania distress, well developed, well nourished, crepe sole wire brusher present in room HEAD: normocephalic, atrau matic [...]
--- OUTSIDE RECORDS SUMMARY | 2024-08-19 08:22 | XMS_ITS | Clinical Summary ---
Author Organization [facility] Address [address] [place] [address] Phone Care Team Providers Care Pit Inspector Name Role Phone Eunice Martinez MD Primary Care Provider Unavailabl e Immunizations Immunization Administration Dates Next Due DTP 10/01/1996, 4,01/03/1993,1992,1992 HPV, Quadrivalent 10/11/2011 Hep B, ped/adol 06/19/1996,12/04/1995,10/04/1995 Hib (PRP-T) 10/03/1993, 3,1992,1992 IPV 08/03/1993,1992,1992 MMR 08/03/1993,05/05/1993 OPV 10/01/1996 Td (adult) (MBL), 2 Lf tetan us toxoid, PF, adsorbed 03/17/2005 Tdap 10/11/2011 Unknown Vaccine 05/05/1993 Family History Relation Name Status Comments Father Alive Father: Alive a nd well Mother Alive Mother: Alive a nd well Sister 1 Sister: Anemia, Anemia Sister 2 Sister: Anemia, Anemia Social History Tobacco Use Types Packs/Day Years Used Date Smoking Tobacco: Never Assessed Comments Unknown Sex and Gender Information Value Date Recorded Sex Assigned at Not on file Legal Sex Female 4:40 PM EDT Gender Identity Not on file Sexual Orientation Not on file Last Filed Vital Signs Vital Sign Reading Time Taken Comments Blood Pressure - - Pulse - - Temperature 35.7 ??C (96.2 ??F) 10/13/2010 12:00 AM E DT Respiratory Rate - - Oxygen Saturation - - Inhaled Oxygen Concentration - - Weight 52.6 kg (116 lb) 10/13/2010 12:00 AM EDT Height - - Body Mass Index - - Plan of Treatment Health Maintenance Due Date Last Done Comments Varicella Vaccines (1 of 2 - 13+ 2-dose series) 2005 HPV Vaccines (2 - 3-dose series) 11/08/2011 10/11/2011 DTaP,Tdap,and Td Vaccines (6 - Td or Tdap) 10/10/2021 10/11/2011, 03/17/2005, 10/01/1996, Additional history exists Influenza Vaccines (#1) 2024 COVID-19 Vaccine ( season) 2024 MMR Vaccines Completed 08/03/1993, 05/05/1993 HIB Vaccines Completed 10/03/1993, 06/1992, 1992, Additional history exists Hepatitis B Vaccines Completed 06/19/1996, 12/04/1995, 10/04/1995 IPV Vaccines Completed 10/01/1996, 06/1993, 1992, Additional history exists Hepatitis A Vaccines Aged Out No long er eligible based on patient's age to complete this topic Men B Vaccine Aged Out No longer elig ible based on patient's age to complete this topic Meningococcal Vaccine Aged Out No corina yanely eligible based on patient's age to complete this topic Pneumococcal Vaccine Aged Out No long er eligible based on patient's age to complete this topic Care Teams Pit Inspector Relationship Specialty Start Date End Date Eunice Martinez MD PCP - General 01/13/17
--- OUTSIDE RECORDS SUMMARY | 2024-08-19 08:22 | XMS_ITS | Encounter Summary ---
Author Organization [facility] Address [address] [place] [address] Phone Care Team Providers Care Flare Man Name Role Phone Eunice Martinez MD Primary Care Provider Unavailabl e Encounter Details Date Type Department Care Team (Late st Contact Info) Description 05/03/2011 Documentation EM Family Medicine [address] [place] [address] Family Medicine, Physician [address] [place], [place] [id number] Social History Tobacco Use Types Packs/Day Years [...] on filedocumented in this encounter Care Teams Flare Man Relationship Specialty Start Date End Date Eunice Martinez MD PCP - General 01/13/17 documented as of this encounter
--- OUTSIDE RECORDS SUMMARY | 2024-08-19 08:22 | XMS_ITS | Encounter Summary ---
Author Organization [facility] Address [address] [place] [address] Phone Care Team Providers Care Raw Hide Trimmer Name Role Phone Eunice Martinez MD Primary Care Provider Unavailabl e Encounter Details Date Type Department Care Team (Late st Contact Info) Description 04/08/2013 Documentation EM Family Medicine [address] [place] [address] Family Medicine, Physician [address] [place] [address] Social History Tobacco Use Types Packs/Day Years [...] on filedocumented in this encounter Care Teams Raw Hide Trimmer Relationship Specialty Start Date End Date Eunice Martinez MD PCP - General 01/13/17 documented as of this encounter
--- OUTSIDE RECORDS SUMMARY | 2024-08-19 08:23 | XMS_ITS | Encounter Summary ---
Author Organization [facility] Address [address] [place] [address] Phone Care Team Providers Care Field Operator Name Role Phone Eunice Martinez MD Primary Care Provider Unavailabl e Encounter Details Date Type Department Care Team (Late st Contact Info) Description 04/08/2013 Documentation EM Family Medicine [address] [place] [address] Family Medicine, Physician [address] [place] [address] Social History Tobacco Use Types Packs/Day Years [...] on filedocumented in this encounter Care Teams Field Operator Relationship Specialty Start Date End Date Eunice Martinez MD PCP - General 01/13/17 documented as of this encounter
--- OUTSIDE RECORDS SUMMARY | 2024-08-19 08:23 | XMS_ITS | Encounter Summary ---
Author Organization [facility] Address [address] [place] [address] Phone Care Team Providers Care Armored Truck Driver Name Role Phone Eunice Martinez MD Primary Care Provider Unavailabl e Encounter Details Date Type Department Care Team (Late st Contact Info) Description 04/06/2017 Conversion Encounter [facility] - [address] [address] Social History Tobacco Use Types Packs/Day Years [...] on filedocumented in this encounter Care Teams Armored Truck Driver Relationship Specialty Start Date End Date Eunice Martinez MD PCP - General 01/13/17 documented as of this encounter
== END 2024-08-19 08:57 | disposition home or self-care (01) ==
LOC: HO.HMCH 08:14
DX: F32.A Depression, unspecified (principal); L81.9 Disorder of pigmentation, unspecified; F41.9 Anxiety disorder, unspecified; E66.3 Overweight; M54.2 Cervicalgia

== ENCOUNTER 2024-08-22 08:47 | Outpatient (REF) | payer OTHER, SELFPAY ==
[2024-08-22 08:57] LABS: MANUAL DIFF FLAG NO
[2024-08-22 09:34] LABS: Basophils Percent Auto 0.6 % (0-2); Eosinophils Absolute Auto 0.1 X10*3/uL (0.0-0.4); Eosinophils Percent Auto 2.2 % (0-4); Hematocrit 39.5 % (37.0-47.0); Hemoglobin 12.8 g/dl (12.0-16.0); Imm Gran Abs Auto 0.01 X10*3/uL (0.00-0.03); Imm Gran Pct Auto 0.2 % (0.0-0.4); Lymphocytes Absolute Auto 2.3 X10*3/uL (1.2-4.9); Mean Corpuscular HGB Conc 32.4 g/dl (31.0-35.0); Mean Corpuscular Hemoglobin 26.4 pg (27.0-33.0); Mean Corpuscular Volume 81.6 fL (80.0-98.0); Monocytes Absolute Auto 0.2 X10*3/uL (0.1-1.2); Monocytes Percent Auto 4.6 % (2-11); Neutrophils Absolute Auto 2.3 x10*3/uL (2.0-8.3); Neutrophils Percent Auto 46.4 % (45-73); Platelet Count 342 X10*3/uL (160-400); Red Blood Count 4.84 X10*6/uL (4.20-5.50)
[2024-08-22 10:11] LABS: Alanine Aminotransferase 50 U/L (0-31); Albumin Level 4.2 g/dL (3.5-5.0); Alkaline Phosphatase 60 U/L (39-117); Anion Gap 10 (12-20); Aspartate Amino Transferase 40 U/L (5-31); Bilirubin Total 0.3 mg/dL (0.0-1.0); Blood Urea Nitrogen 12 mg/dL (9-16); Carbon Dioxide 20 mmol/L (22-29); Chloride 113 mmol/L (96-108); Cholesterol 130 mg/dL (<200); Estimated Glomerular Filt Rate > 60; Glucose Random 87 mg/dL (60-115); HDL Cholesterol 35 mg/dL (>40); LDL Cholesterol Calculated 65 mg/dL (<100); Potassium 3.8 mmol/L (3.3-5.1); Sodium 139 mmol/L (135-145); Total Protein 7.7 g/dL (6.5-8.0); Triglycerides 154 mg/dL (<150)
[2024-08-22 10:33] LABS: Free T4 (Free Thyroxine) 0.88 ng/dL (0.71-1.85); Vitamin D 25-OH Total 18.7 ng/mL (>30)
[2024-08-22 10:36] LABS: Folate 6.1 ng/mL (> or = 4.0); Vitamin B12 381 pg/mL (200-900)
== END 2024-08-22 08:48 | disposition home or self-care (01) ==
LOC: HO.LAB 08:47
DX: Z00.00 Encounter for general adult medical examination without abnormal findings (principal); E78.00 Pure hypercholesterolemia, unspecified; F41.9 Anxiety disorder, unspecified; R79.89 Other specified abnormal findings of blood chemistry
CPT/HCPCS: 36415; 80053; 80061; 82306; 82607; 82746; 84439; 84443; 85025

== ENCOUNTER 2025-03-06 14:25 | Outpatient (AMB) | payer OTHER, SELFPAY ==
--- OUTSIDE RECORDS SUMMARY | 2023-11-02 05:30 | XMS_ITS ---
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419) During the visit, the following areas of concern were addressed: Discussed cervical cancer screening with either cytology alone every 3 years or high risk HPV co-testing every 5 years as per ASCCP guidelines. Advised continued annual pelvic exams. Patient encouraged to increase her level of exercise. SBE technique encouraged/tau ght. 11/02/2023 Encounter for screening for infections with a predominantly sexual mode of transmission (ICD-10 - Z11.3) Plan Of Treatment Treatment Notes Assessment Notes Encounter for gynecological examination (general) (routine) without abnormal findings During the visit, the following areas of concern were addressed: Discussed cervical cancer screening with either cytology alone every 3 years or high risk HPV co-testing every 5 years as per ASCCP guidelines. Advised continued annual pelvic exams. Patient encouraged to increase her level of exercise. SBE technique encouraged/taught. 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 * HPI: C onstitutional: Jil is a 33yo GxPx with LMP x/x/x who presents for her yearly printed circuit boards plasma etcher annual exam. She is new to this practice, having received previous printed circuit boards plasma etcher care . She has been in state of health since her last exam. She has the following concerns: . She has received the Covid-19 vaccine. Relationship status: for years. She is sexually active. Sexual partner(s): . She does wish to have STI testing. Menses: Contraception: The patient has had an abnormal pap smear within the last 5 years. Her most recent pap smear was . The patient does exercise. She exercises x days/week by . 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 B ladder symptoms d enies. V aginal discharge, unusual d enies. V aginal itch or odor d enies. w eight or appetite changes d enies. C hest pains, SOB d enies. d epression d enies.? B reast: Denies B reast lump. D enies N ipple discharge.? H ematology: Denies S wollen glands. S kin: Patient complaining of c hanging moles. P sychiatric: Denies A nxiety. * Medical History: Objective: * Vitals: * Examination: G eneral Examination: GENERAL APPEARANCE: i n no acute distress,well developed, well nourished,coordinator volunteer services present in room. HEAD: n ormocephalic, atraumatic. NECK/THYROID: n sudhakar supple, full range of motion,thyroid normal. LYMPH NODES: n o axillary or supraclavicular adenopathy.? SKIN: n ormal,good turgor,no rashes,no suspicious lesions.? BREASTS: n ormal,no dimpling,no discharge,no drainage,no masses palpable bilaterally,nontender. ABDOMEN: s oft, non-tender, non distended without masses or hepatosplenomegay. BACK: n o costovertebral angle tenderness. FEMALE GENITOURINARY: V ulva without lesions or masses, vagina pink without abnormal discharge, lesions or masses, cervix appears normal and is not tender to palpation, uterus is normal size, mobile, nontender and anteverted, ovaries are not palpable. NEUROLOGIC: a lert and oriented,gait normal. PSYCH: a lert, oriented,cognitive function intact,cooperative with exam,good eye contact,mood/affect full range,speech clear. Assessment: * Assessment: 1. E ncounter for gynecological examination (general) (routine) without abnormal findings - Z01.419 (Primary) 2 . E ncounter for screening for infections with a predominantly sexual mode of transmission - Z11.3 Plan: * Treatment: * Follow Up: 1 Year (Reason: Yearly Head Kiln Operator Exam) * Images: Billing Information: * Visit Code: 31314 Preventive Care New Pt. Age 18-39. * Procedure Codes: * Electronic signature of SHAYY BAILEY MD on 03/06/2025 at 04:00 PM EDT Sign off status: Pending * Provider: Ana BAILEY MD Date: 0 11/02/2023 Generated for Radames che/Mich/Zachitting on: 04:00 PM EDT History and Physical Notes * HPI (History of Present Illness) Category Sub-Category Detail Notes Category Not es Constitutional Jil is a 33yo GxPx with LMP x/x/x who presents for her yearly printed circuit boards plasma etcher annual exam. She is new to this practice, having received previous printed circuit boards plasma etcher care . She has been in state of health since her last exam. She has the following concerns: . She has received the Covid-19 vaccine. Relationship status: for years. She is sexually active. Sexual partner(s): . She does wish to have STI testing. Menses: Contraception: The patient has had an abnormal pap smear within the last 5 years. Her most recent pap smear was . The patient does exercise. She exercises x days/week by . Examination Category Sub-Category Detail Notes Category Not es General Examination GENERAL APPEARANCE: in no ac [place] distress, well developed, well nourished, coordinator volunteer services present in room HEAD: normocephalic, atrau matic NECK/THYROID: neck supple, full ra nge of motion, thyroid normal ABDOMEN: soft, non-tender, no n distended without masses or hepatosplenomegay NEUROLOGIC: alert and oriented, gait normal SKIN: normal, good turgor, no rashes, no suspicious lesions BACK: no costovertebral an gle tenderness BREASTS: normal, no dimpling, no discharge, no drainage, no masses palpable bilaterally, nontender LYMPH NODES: no axillary or supra clavicular adenopathy PSYCH: alert, oriented, cog nitive function intact, cooperative with exam, good eye contact, mood/affect full range, speech clear FEMALE GENITOURINARY: Vulva without lesi ons or masses, vagina pink without abnormal discharge, lesions or masses, cervix appears normal and is not tender to palpation, uterus is normal size, mobile, nontender and anteverted, ovaries are not palpable
[2025-03-06 14:37] VITALS: BP 110/80; PULSE 78; O2SAT 98; BMI 27.6
--- NOTE | 2025-03-06 14:37 | A.OFFPC_ITS ---
Vital Signs 03/06/25 14:37 Height 5 ft 1 in Weight 146 lb 4 oz BMI 27.6 BP 110/80 Blood Pressure Location Lt brachial Position Sitting Pulse 78 Pulse Source Pulse Oximeter Pulse Oximetry (%) 98 Oxygen Delivery Method Room Air Intake Visit Reasons: f/u anxiety Community Engagement Coordinator Required: No Accompanied by: Self / Same As Patient Allergies No Known Allergies Allergy (Verified 03/06/25 14:42) Medication List - Last Reconciled 03/06/25 by Bianca Mcnamara PA-C cholecalciferol (vitamin D3) 25 mcg PO DAILY ketoconazole 2% 1 appl topical DAILY venlafaxine ER 37.5 mg PO BEDTIME Tobacco use date assessed: 03/06/25 Dental Screening Dental Screen Date: 03/06/25 Did you have a dental visit in the last 12 months?: Yes Did you have a dental problem in the last 6 months where you did not have access to dental care?: No Was dental information given to patient?: Patient has dentist HPI f/u anxiety HPI Details 34-year-old female with past medical his tory of depression and anxiety last seen 08/2024 coming in for follow up. Presenting with anxiety and depression management. 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 Previous medication trials include venlafaxine, which was ineffective, and hydroxyzine, which caused sedation. The patient reports a cycle of working excessively to avoid depression, but feeling too tired to engage in activities, leading to depressive episodes when not active. There is a history of an unsuccessful attempt to see a psychiatrist due to a misunderstanding about the location of the appointment, which led to increased anxiety. The patient has not seen a counselor or therapist recently and does not recall past experiences with therapy being beneficial. 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 1. Little interest or pleasure in doing things: more than half the days 2. Feeling down, depressed, or hopeless: several days 3. Trouble falling or staying asleep, or sleeping too much: nearly every day 4. Feeling tired or having little energy: more than half the days 5. Poor appetite or overeating: more than half the days 6. Feeling bad about yourself - or that you are a failure or have let yourself or your family down: several days 7. Trouble concentrating on things, such as reading the newspaper or watching television: more than half the days 8. Moving or speaking so slowly that other people could have noticed. Or the opposite - being so fidgety or restless that you have been moving around a lot more than usual: more than half the days 9. Thoughts that you would be better off or of hurting yourself in some way: not at all Total score: 15 Source: Developed by Drs. Francisco Javier Mas, Idania Erickson, Cortez Candelario and colleagues, with an educational viridiana from [employer]. Thrive Questionnaire Date Thrive assessed: 02/27/25 I am a: Patient What is your living situation today?: I have a steady place to live Within the past 12 months, did the food you bought not last and you didn't have the money to get more?: Never true Within the past 12 months, did you worry whether your food would run out before you got money to buy more?: Never true Do you have trouble paying for medicines?: No Do you have trouble getting transportation to medical appointments?: No Do you have trouble paying your heating and electricity bill?: No Do you have trouble taking care of your child, family member or friend?: No Do you have trouble with day-to-day activities such as bathing, preparing meals, shopping, managing finances, etc.?: No Are you currently unemployed and looking for a job?: No Are you interested in more education?: Yes Please select the resources that you would like help with: None Currently or been in a relationship where the following occur: No concerns reported THRIVE Score: 0 AUDIT C Alcohol Use Questionnaire (AUDIT-C) 1. How often do you have a drink containing alcohol?: Never 3. How often do you have six or more drinks on one occasion?: Never Total Score: 0 MONA-7 AMB Questionnaire MONA-7 Date MONA - 7 assessed: 08/19/24 Feeling nervous, anxious, or on edge: 3 = Nearly every day Not being able to stop or control worryin = Nearly every day Worrying too much about different things: 3 = Nearly every day Trouble relaxin = Nearly every day Being so restless that it is hard to sit still: 3 = Nearly every day Becoming easily annoyed or irritable: 3 = Nearly every day Feeling afraid as if something awful might happen: 3 = Nearly every day Total MONA-7 score (0-4 normal; 5-9 mild; 10-14 moderate; 15-21 severe): 21 Source: Developed by Drs. Francisco Javier Mas, Idania Erickson, Cortez Candelario and colleagues, with an educational viridiana from [employer]. Review of Systems Const Denies body aches, Denies chills, Denies fever(s), Denies headache(s) and Denies poor appetite Eyes Reports no additional complaints ENT Denies dysphagia, Denies dizziness, Denies headache(s) and Denies odynophagia Card Denies chest pain, Denies syncope, Denies edema, Denies irregular heart rhythm, Denies lightheadedness and Denies dyspnea Resp Denies cough and Denies dyspnea GI Denies abdominal pain, Denies constipation, Denies dysphagia, Denies diarrhea, Denies nausea, Denies odynophagia and Denies vomiting Reports no additional complaints Musc Reports no additional complaints and Denies abnormal gait Skin/Breast Reports system reviewed and no additional complaints, except as documented Neuro Denies abnormal gait, Denies dizziness, Denies syncope and Denies headache(s) Psych Reports no additional complaints Physical exam (Primary Care) Vital Signs: Last Vital Signs Pulse 78 03/06/25 14:37 BP 110/80 03/06/25 14:37 Pulse Ox 98 03/06/25 14:37 Oxygen Delivery Method Room Air 03/06/25 14:37 BMI result Body Mass Index 27.6 Tobacco/Smoking Status: Tobacco use Status Tobacco use date assessed 03/06/25 03/06/25 14:41 Patient Tobacco Use Status Never used Tobacco 03/06/25 14:41 Tobacco use type Cigarette 03/06/25 14:41 e-Cigarette/Vaping Use Never Used 03/06/25 14:41 PHQ-9: PHQ-9 Score PHQ-9: Total score 15 03/06/25 14:45 Thrive Assessment: Date of Thrive Assessment Date Thrive assessed 02/27/25 03/06/25 14:41 Currently or been in a relationship where the following occur: No concerns reported Const General: cooperative, healthy appearing, comfortable and no acute distress Orientation/consciousness: patient oriented x3 HENMT Head: Yes normocephalic Ears: hearing grossly normal bilaterally General nose exam: Normal external nose present Eyes General: appearance normal, both eyes and all related structures Conjunctivae: conjunctivae normal Neck Neck: Yes full ROM and Yes no lymphadenopathy Resp Effort & Inspection: normal respiratory effort Auscultation: clear to auscultation bilaterally, no crackles, no rales, no rhonchi and no wheezes Cardio Rate: regular rate Rhythm: regular rhythm Skin General skin exam: no rashes or lesions noted Neuro General: patient oriented x3 Gait exam (Neuro): Normal gait present Extrem General: Yes normal to inspection, Yes full ROM and No edema Psych Affect: normal affect Attitude: cooperative Insight: Good insight present (Psych) Judgement: Good judgement present (Psych) Coding Level of Care Code Est Pt Level 3 (78153) Diagnoses Depression F32.A Anxiety F41.9 Overweight (BMI 25.0-29.9) E66.3 Assessment & Plan Assessment & Plan (1) Depression: Code(s): F32.A - Depression, unspecified Category: Medical Plan: The patient will begin bupropion treatment, starting with once daily dosing to assess tolerance and effectiveness, with the option to increase to twice daily if well-tolerated. Follow-up with a psychiatrist is recommended to ensure comprehensive management of depressive symptoms and to rule out other psychiatric conditions. (2) Anxiety: Code(s): F41.9 - Anxiety disorder, unspecified Category: Medical Plan: The plan includes starting the patient on bupropion, which may help with anxiety and depression without the sedative effects experienced with previous medications. A referral to [facility] for psychiatric evaluation and therapy was made to explore potential underlying conditions. (3) Overweight (BMI 25.0-29.9): Code(s): E66.3 - Overweight Category: Medical Plan: Healthy diet and regular exercise is encouraged. Plan This note was constructed using voice recognition software. While every effort has been made to ensure accuracy and geological sample tester, still areas may have been included sometimes these areas may affect the content or meeting of the given symptoms. Total time spent caring for the patient today was 20 minutes. This includes time spent before the visit reviewing the chart, time spent during the visit, and time spent after the visit and documentation. Patient was informed and verbally consented to the use of an ambient scribe for clinic note documentation during this visit. Orders: Referrals Psychiatry Referral F32.A - Depression, unspecified, F41.9 - Anxiety disorder, unspecified Medications: New bupropion HCl 100 mg PO BID 180 tabs 0RF Discontinued venlafaxine ER Discontinued Reason: Patient no longer taking 37.5 mg PO BEDTIME 60 caps 1RF
--- OUTSIDE RECORDS SUMMARY | 2025-03-06 16:01 | XMS_ITS | Patient Health Record ---
Author Organization [facility] Address [address] [place] [address] Care Team Providers Care Rn Labor Delivery Name Role Phone BAILEYSHAYY Unavailable [phone] Reason For Referral No Information Plan Of Treatment No Information Insurance Providers Payer Name Payer Address Payer Phone Subscriber Number Group Number Insured Name Patient Relationship to Insured Coverage Start Date Coverage End Date [facility] [address] [place], [place] [id number] JIL PERLA Self - patient is the insured
--- OUTSIDE RECORDS SUMMARY | 2025-03-06 16:01 | XMS_ITS | Clinical Summary ---
Author Organization [facility] Address [address] [place] [id number] Phone Care Team Providers Care Child Care Team Lead Name Role Phone Pcp, Unknown Primary Care Provider Unavailabl e Allergies No known active allergies Medications ALPRAZolam (XANAX) 1 MG tablet Take 1 tablet (1 mg total) by mouth once for 1 dose. 1 tablet 04/03/2024 Active Active Problems Problem Noted Date Diagnosed Date ASCUS with positive high risk HPV cervical 04/03 Assessment & Plan (04/03/2024 12:03 PM EDT): Colposcopy done, 1 area of acetowhite that warrants a biopsy that she declines today as she is extremely nervous and anxious and worried about the pain. I suggested taking Xanax and oxycodone 1 hour before, she is still nervous about this but is willing to try that. The only alternative would be to have this in the operating room under general anesthesia She will need a recycling collections driver to take her to the appointment after using these medications. Also advised ibuprofen plus acetaminophen Family History Medical History Relation Comments Bone cancer Maternal Uncle Breast cancer Mother Relation Status Comments Maternal Uncle Alive Mother Social History Tobacco Use Types Packs/Day Years Used Date Smoking Tobacco: Never Smokeless Tobacco: Never Tobacco Cessation:Counseling Given: Not Answered Alcohol Use Standard Drinks/Week Comments Not Currently 0 (1 standard drink = 0.6 oz pur e alcohol) Education Answer Date Recorded Are you interested in more education? Not on jie e 09/30/2022 Are you concerned about learning? Not on file 09/30/2022 No 09/30/2022 No 09/30/2022 Digital Access Answer Date Recorded No 11/01/2022 No 11/01/2022 Reliable internet access at home? Not on file 11/01/2022 Device with a working camera? Not on file Comments No Sex and Gender Information Value Date Recorded Sex Assigned at Not on file Legal Sex Female 2:25 PM EST Gender Identity Not on file Sexual Orientation Not on file Last Filed Vital Signs Vital Sign Reading Time Taken Comments Blood Pressure 102/60 04/03/2024 11:32 AM EDT Pulse - - Temperature - - Respiratory Rate - - Oxygen Saturation - - Inhaled Oxygen Concentration - - Weight 70.7 kg (155 lb 12.8 oz) 024 11:32 AM EDT Height 152.4 cm (5') 04/03/2024 11:32 AM EDT Body Mass Index 30.43 04/03/2024 11:32 AM EDT Plan of Treatment Health Maintenance Due Date Last Done Comments DEPRESSION SCREENING 2004 HEPATITIS C SCREENING 2010 HIV ONE-TIME SCREENING (18-6 5 YEARS) 2010 PAP SMEAR 2013 Adult Td,Tdap Booster 10/10/2021 10/11/2011 INFLUENZA VACCINE (#1) 2025 COVID-19 VACCINE (3 - 2024-2 6 season) 2025 07/18/2020, 06/27/2020 SMOKING STATUS SCREENING (On ce After 26 Yrs) Completed 04/03/2024 HEPATITIS A VACCINES Aged Out No long er eligible based on patient's age to complete this topic HIB VACCINES Aged Out No longer eligi ble based on patient's age to complete this topic MENINGOCOCCAL VACCINES (ACWY) Aged Out No longer eligible based on patient's age to complete this topic MENINGOCOCCAL VACCINES (B) Aged Out N o longer eligible based on patient's age to complete this topic PNEUMOCOCCAL VACCINES (0-49 years) Aged Out No longer eligible b ased on patient's age to complete this topic Medical Devices Not on file Insurance [facility] [address] [place], [place] [id number] [facility] [address] [place] Care Teams Child Care Team Lead Relationship Specialty Start Date End Date Pcp, Unknown PCP - General 05/21/20 Additional Source Comments The information contained in this document represents components of the legal health record. It is not the complete legal health record.[facility]
== END 2025-03-06 15:14 | disposition home or self-care (01) ==
LOC: HO.HMCH 14:26
DX: F32.A Depression, unspecified (principal); F41.9 Anxiety disorder, unspecified; E66.3 Overweight

== ENCOUNTER 2025-05-06 09:25 | Outpatient (AMB) | payer OTHER, SELFPAY ==
--- NOTE | 2025-05-06 09:29 | MHC.PC.OV ---
Vital Signs 05/06/25 09:30 Height 5 ft 1 in Weight 147 lb 4 oz BMI 27.8 BP 110/60 Blood Pressure Location Lt brachial Position Sitting Pulse 82 Pulse Source Pulse Oximeter Temp 97.1 F Temp Source Temporal Artery Scan Pulse Oximetry (%) 95 Oxygen Delivery Method Room Air Intake Visit Reasons: f/u anxiety Intake Note: Patient is here to follow up on Anxiety. Micro Lab Analyst Required: No Linux Network Engineer: Not Required per policy Accompanied by: Self / Same As Patient Allergies No Known Allergies Allergy (Verified 05/06/25 09:39) Medication List - Last Reconciled 05/06/25 by Bianca Mcnamara PA-C bupropion HCl 100 mg PO BID cholecalciferol (vitamin D3) 25 mcg PO DAILY ketoconazole 2% 1 appl topical DAILY Tobacco use date assessed: 05/06/25 Dental Screening Dental Screen Date: 03/06/25 HPI f/u anxiety HPI Details 34-year-old female with a past medical history of depression and anxiety last seen 03/2025 coming in for follow up on anxiety. At her last visit patient was started on Wellbutrin and referral was placed to therapy Presenting for follow-up on several issues, primarily anxiety, depression, and headaches. The patient was prescribed Wellbutrin for anxiety and depression but has not started the medication, reporting having forgotten about it. The patient reports feeling unchanged with regards to anxiety and depression, and notes being easily triggered at work. An intake appointment for therapy is scheduled for today. The patient reports getting a lot of headaches, which the patient believes are from being constantly tense, and states that only ibuprofen provides relief. The patient had an IUD removed in December and has since experienced severe menstrual cramps. Having had an IUD since having a child at a young age, the patient wishes to see how the patient's body functions without hormonal control. 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 1. Little interest or pleasure in doing things: more than half the days 2. Feeling down, depressed, or hopeless: several days 3. Trouble falling or staying asleep, or sleeping too much: nearly every day 4. Feeling tired or having little energy: more than half the days 5. Poor appetite or overeating: more than half the days 6. Feeling bad about yourself - or that you are a failure or have let yourself or your family down: several days 7. Trouble concentrating on things, such as reading the newspaper or watching television: more than half the days 8. Moving or speaking so slowly that other people could have noticed. Or the opposite - being so fidgety or restless that you have been moving around a lot more than usual: more than half the days 9. Thoughts that you would be better off or of hurting yourself in some way: not at all Total score: 15 Depression Screening Interpretation: Positive Depression Screening Done: Yes Source: Developed by Drs. Francisco Javier Mas, Idania Erickson, Cortez Candelario and colleagues, with an educational viridiana from [employer]. Thrive Questionnaire Date Thrive assessed: 02/27/25 I am a: Patient What is your living situation today?: I have a steady place to live Within the past 12 months, did the food you bought not last and you didn't have the money to get more?: Never true Within the past 12 months, did you worry whether your food would run out before you got money to buy more?: Never true Do you have trouble paying for medicines?: No Do you have trouble getting transportation to medical appointments?: No Do you have trouble paying your heating and electricity bill?: No Do you have trouble taking care of your child, family member or friend?: No Do you have trouble with day-to-day activities such as bathing, preparing meals, shopping, managing finances, etc.?: No Are you currently unemployed and looking for a job?: No Are you interested in more education?: Yes Please select the resources that you would like help with: None Currently or been in a relationship where the following occur: No concerns reported THRIVE Score: 0 MONA-7 AMB Questionnaire MOAN-7 Date MONA - 7 assessed: 05/06/25 Feeling nervous, anxious, or on edge: 3 = Nearly every day Not being able to stop or control worryin = Nearly every day Worrying too much about different things: 3 = Nearly every day Trouble relaxin = Nearly every day Being so restless that it is hard to sit still: 3 = Nearly every day Becoming easily annoyed or irritable: 3 = Nearly every day Feeling afraid as if something awful might happen: 3 = Nearly every day Total MONA-7 score (0-4 normal; 5-9 mild; 10-14 moderate; 15-21 severe): 21 Source: Developed by Drs. Francisco Javier Mas, Idania Erickson, Cortez Candelario and colleagues, with an educational viridiana from [employer]. Review of Systems Const Denies body aches, Denies chills, Denies fever(s), Denies headache(s) and Denies poor appetite Eyes Reports no additional complaints ENT Denies dizziness and Denies headache(s) Card Denies chest pain, Denies edema, Denies lightheadedness and Denies dyspnea Resp Denies dyspnea GI Denies abdominal pain, Denies nausea and Denies vomiting Reports no additional complaints Musc Reports no additional complaints Skin/Breast Reports system reviewed and no additional complaints, except as documented Neuro Denies dizziness and Denies headache(s) Psych Reports no additional complaints Physical exam (Primary Care) Vital Signs: Last Vital Signs Temp 97.1 F 05/06/25 09:30 Pulse 82 05/06/25 09:30 BP 110/60 05/06/25 09:30 Pulse Ox 95 05/06/25 09:30 Oxygen Delivery Method Room Air 05/06/25 09:30 BMI result Body Mass Index 27.8 Tobacco/Smoking Status: Tobacco use Status Tobacco use date assessed 05/06/25 05/06/25 09:35 Patient Tobacco Use Status Never used Tobacco 05/06/25 09:35 Tobacco use type Cigarette 05/06/25 09:35 e-Cigarette/Vaping Use Never Used 05/06/25 09:35 PHQ-9: PHQ-9 Score PHQ-9: Total score 15 12/02/25 09:39 Depression Screening Interpretation: Positive Thrive Assessment: Date of Thrive Assessment Date Thrive assessed 02/27/25 05/06/25 09:35 Currently or been in a relationship where the following occur: No concerns reported Const General: cooperative, healthy appearing, comfortable and no acute distress Orientation/consciousness: patient oriented x3 HENMT Head: Yes normocephalic Ears: hearing grossly normal bilaterally General nose exam: Normal external nose present Eyes General: appearance normal, both eyes and all related structures Conjunctivae: conjunctivae normal Neck Neck: Yes full ROM and Yes no lymphadenopathy Resp Effort & Inspection: normal respiratory effort Auscultation: clear to auscultation bilaterally, no crackles, no rales, no rhonchi and no wheezes Cardio Rate: regular rate Rhythm: regular rhythm Skin General skin exam: no rashes or lesions noted Neuro General: patient oriented x3 Gait exam (Neuro): Normal gait present Extrem General: Yes normal to inspection, Yes full ROM and No edema Psych Affect: normal affect Attitude: cooperative Insight: Good insight present (Psych) Judgement: Good judgement present (Psych) Coding Level of Care Code Est Pt Level 3 (88078) Diagnoses Depression F32.A Anxiety F41.9 Overweight (BMI 25.0-29.9) E66.3 Headache R51.9 Dysmenorrhea N94.6 Assessment & Plan Assessment & Plan (1) Depression: Code(s): F32.A - Depression, unspecified Category: Medical Plan: The patient continues to experience symptoms of anxiety and depression and has not yet started the previously prescribed Wellbutrin. The prescription for Wellbutrin will be resent to the pharmacy, making it available should the patient choose to start it. The patient is encouraged to proceed with the scheduled therapy appointment at [facility] and discuss medication management with the therapist. (2) Anxiety: Code(s): F41.9 - Anxiety disorder, unspecified Category: Medical Plan: See above (3) Overweight (BMI 25.0-29.9): Code(s): E66.3 - Overweight Category: Medical Plan: Healthy diet and regular exercise is encouraged. (4) Headache: Code(s): R51.9 - Headache, unspecified Category: Medical Plan: The patient reports frequent headaches, likely tension-related, that respond well only to ibuprofen. A prescription for ibuprofen 800 mg will be sent to the pharmacy. Advised to maintain adequate hydration. (5) Dysmenorrhea: Code(s): N94.6 - Dysmenorrhea, unspecified Category: Medical Plan: The patient is experiencing new-onset severe menstrual cramps following IUD removal in December. Oral contraceptive pills were discussed as a treatment option, but the patient wishes to avoid hormonal methods at this time. The patient is advised that the patient can follow up here or with the patient's patient registration clerk if the patient reconsiders treatment. Plan This note was constructed using voice recognition software. While every effort has been made to ensure accuracy and av specialist, still areas may have been included sometimes these areas may affect the content or meeting of the given symptoms. Total time spent caring for the patient today was 20 minutes. This includes time spent before the visit reviewing the chart, time spent during the visit, and time spent after the visit and documentation. Patient was informed and verbally consented to the use of an ambient scribe for clinic note documentation during this visit. Orders: Orders TSH reflex Free T4 Today Z13.29 - Encounter for screening for other suspected endocrine disorder Complete Blood Count Auto Diff Today Z13.0 - Encounter for screening for diseases of the blood and blood-forming organs and certain disorders involving the immune mechanism UA CC w/rflx Micro + Cult Today R35.89 - Other polyuria Vitamin B12 and Folate Today Z13.21 - Encounter for screening for nutritional disorder Vitamin D 25-OH Total Today Z13.21 - Encounter for screening for nutritional disorder Comprehensive Met. Panel Today R79.89 - Other specified abnormal findings of blood chemistry, Z00.00 - Encounter for general adult medical examination without abnormal findings Lipid Panel Today Z13.220 - Encounter for screening for lipoid disorders CT NG by PCR Vag/Cerv Today Z00.00 - Encounter for general adult medical examination without abnormal findings, Z11.3 - Encounter for screening for infections with a predominantly sexual mode of transmission Medications: New ibuprofen 800 mg PO Q8H PRN 30 tabs 0RF pain Refilled bupropion HCl 100 mg PO BID 180 tabs 0RF
[2025-05-06 09:30] VITALS: BP 110/60; PULSE 82; TEMP 36.2; O2SAT 95; BMI 27.8
--- OUTSIDE RECORDS SUMMARY | 2025-05-06 10:08 | XMS_ITS | Encounter Summary ---
Author Organization [facility] Address [address] [place] [id number] Phone Care Team Providers Care Electric Truck Driver Name Role Phone Eunice Martinez MD Primary Care Provider Unavailabl e Encounter Details Date Type Department Care Team (Late st Contact Info) Description 05/03/2011 Documentation EM Family Medicine [address] [place] [address] Family Medicine, Physician [address] [place], [place] [phone] Social History Tobacco Use Types Packs/Day Years [...] on filedocumented in this encounter Care Teams Electric Truck Driver Relationship Specialty Start Date End Date Eunice Martinez MD PCP - General 01/13/17 documented as of this encounter
--- OUTSIDE RECORDS SUMMARY | 2025-05-06 10:08 | XMS_ITS | Encounter Summary ---
Author Organization [facility] Address [address] [place] [address] Phone Care Team Providers Care Xerox Machine Operator Name Role Phone Eunice Martinez MD Primary Care Provider Unavailabl e Encounter Details Date Type Department Care Team (Late st Contact Info) Description 04/06/2017 Conversion Encounter [facility] - [address] [id number] Social History Tobacco Use Types Packs/Day Years [...] on filedocumented in this encounter Care Teams Xerox Machine Operator Relationship Specialty Start Date End Date Eunice Martinez MD PCP - General 01/13/17 documented as of this encounter
--- OUTSIDE RECORDS SUMMARY | 2025-05-06 10:08 | XMS_ITS | Encounter Summary ---
Author Organization [facility] Address [address] [place] [phone] Phone Care Team Providers Care Software Analyst Name Role Phone Eunice Martinez MD Primary Care Provider Unavailabl e Encounter Details Date Type Department Care Team (Late st Contact Info) Description 04/08/2013 Documentation EM Family Medicine [address] [place] [address] Family Medicine, Physician [address] [place] [address] Social History Tobacco Use Types Packs/Day Years [...] on filedocumented in this encounter Care Teams Software Analyst Relationship Specialty Start Date End Date Eunice Martinez MD PCP - General 01/13/17 documented as of this encounter
--- OUTSIDE RECORDS SUMMARY | 2025-05-06 10:08 | XMS_ITS | Clinical Summary ---
Author Organization [facility] Address [address] [place] [phone] Phone Care Team Providers Care Plastics Fitter Name Role Phone Eunice Martinez MD Primary [...] - - Pulse - - Temperature 35.7 C (96.2 F) 10/13/2010 12:00 AM EDT Respiratory Rate - - Oxygen Saturation - [...] 10/01/1996, Additional history exists Influenza Vaccines (#1) 2025 COVID-19 Vaccine ( season) 2025 MMR Vaccines Completed 08/03/1993, 05/05/1993 HIB Vaccines [...] age to complete this topic Care Teams Plastics Fitter Relationship Specialty Start Date End Date Eunice Martinez MD PCP - General 01/13/17
--- OUTSIDE RECORDS SUMMARY | 2025-05-06 10:08 | XMS_ITS | Encounter Summary ---
Author Organization [facility] Address [address] [place] [phone] Phone Care Team Providers Care Broker Associate Name Role Phone Eunice Martinez MD Primary Care Provider Unavailabl e Encounter Details Date Type Department Care Team (Late st Contact Info) Description 04/08/2013 Documentation EM Family Medicine [address] [place] [address] Family Medicine, Physician [address] [place] [address] Social History Tobacco Use Types Packs/Day Years [...] on filedocumented in this encounter Care Teams Broker Associate Relationship Specialty Start Date End Date Eunice Martinez MD PCP - General 01/13/17 documented as of this encounter
--- OUTSIDE RECORDS SUMMARY | 2025-05-06 10:08 | XMS_ITS | Encounter Summary ---
Author Organization [facility] Address [address] [place] [address] Phone Care Team Providers Care Head Piece Assembler Name Role Phone Eunice Martinez MD Primary Care Provider Unavailabl e Encounter Details Date Type Department Care Team (Late st Contact Info) Description 07/15/2011 Documentation EM Family Medicine [address] [place] [address] Family Medicine, Physician [address] [place] [address] Social History Tobacco Use Types Packs/Day Years [...] on filedocumented in this encounter Care Teams Head Piece Assembler Relationship Specialty Start Date End Date Eunice Martinez MD PCP - General 01/13/17 documented as of this encounter
--- OUTSIDE RECORDS SUMMARY | 2025-05-06 10:08 | XMS_ITS | Clinical Summary ---
Author Organization [facility] Address [address] [place] [phone] Phone Care Team Providers Care Firewood Cutter Name Role Phone Pcp, Unknown Primary Care [...] under general anesthesia She will need a combine driver to take her to the appointment [...] topic Medical Devices Not on file Insurance [facility] [address] [place], [place] [address]O [facility] [address] Care Teams Firewood Cutter Relationship Specialty Start Date End Date Pcp, Unknown PCP - General 05/21/20 Additional Source Comments The information contained in this document represents components of the legal health record. It is not the complete legal health record.[facility]
== END 2025-05-06 09:58 | disposition home or self-care (01) ==
DX: F32.A Depression, unspecified (principal); F41.9 Anxiety disorder, unspecified; E66.3 Overweight; R51.9 Headache, unspecified; N94.6 Dysmenorrhea, unspecified